=== PATIENT | female | born 1970 | race Hispanic/Latino ===

== ENCOUNTER 2018-11-19 17:36 | Emergency (ER) | payer SELFPAY ==
[2018-11-19 20:25] LABS: Urine Bacteria <20 /HPF (<20); Urine RBC <5 /HPF (NONE SEEN)
[2018-11-19 20:26] LABS: Urine Culture Reflex Order NOT NEEDED
[2018-11-19 20:28] LABS: Urine Blood NEGATIVE (NEG); Urine Glucose NEGATIVE (NEG); Urine Protein NEGATIVE (NEG); Urine Specific Gravity 1.005 (1.005-1.030); Urine pH 5.5 (5.0-7.0)
[2018-11-19 20:36] LABS: Absolute Lymphocytes (CBC) 2.7 K/uL (0.7-4.9); Absolute Monocytes 0.4 K/uL (0.1-1.3); Absolute Neutrophil 4.4 K/uL (1.8-8.0); Basophils % 1.2 % (0-1.3); Eosinophils % 1.5 % (0-4.4); Hematocrit 42.3 % (36.0-45.0); Lymphocytes % 34.7 % (15.3-44.8); MPV 9.6 fL (7.6-11.3); Monocytes % 5.3 % (3.3-12.3); RBC Red Blood Cell Count 4.59 M/uL (3.86-4.86)
[2018-11-19 20:42] LABS: ALT/SGPT 19 U/L (12-78); AST/SGOT 17 U/L (15-37); Albumin 4.1 g/dL (3.4-5.0); Alkaline Phosphatase 135 U/L (45-117); BUN Blood Urea Nitrogen 15 mg/dL (7-18); Bicarbonate 26 mmol/L (21-32); Bilirubin Direct < 0.1 mg/dL (0-0.2); Bilirubin Total 0.3 mg/dL (0.2-1.0); Glucose Level 88 mg/dL (74-106); Potassium 3.9 mmol/L (3.5-5.1); Protein, Total 8.4 g/dL (6.4-8.2); Sodium Level 142 mmol/L (136-145)
[2018-11-19] MEDS ORDERED: NA CHLORIDE 0.9% 500 ML ONE (20:44)
[2018-11-19] MEDS ORDERED: ASPIRIN 600 MG/SUPP PR ONE (20:44)
--- NOTE | 2018-11-19 21:07 | ER ---
Nurse's Notes [facility] Name: Marjorie Terry Age: 48 yrs Sex: Female : 1970 Arrival Date: 11/19/2018 Time: 17:39 Bed 8 Private MD: None, None Diagnosis: Frequency of micturition Presentation: 11/19 17:58 Presenting complaint: Patient states: Extreme thirst, can not get enough to drink, has sg noticed increased in urination frequency, reports nausea and abd pain. Transition of care: patient was not received from another setting of care. Onset of symptoms was November 19, 2018. Risk Assessment: Do you want to hurt yourself or someone else? Patient reports no desire to harm self or others. Initial Sepsis Screen: Does the patient meet any 2 criteria? No. Patient's initial sepsis screen is negative. Does the patient have a suspected source of infection? No. Patient's initial sepsis screen is negative. Care prior to arrival: None. 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 - Social history:: Smoking status: Patient/guardian denies using tobacco. - Ebola Screening: : Patient negative for fever greater than or equal to 101.5 degrees Fahrenheit, and additional compatible Ebola Virus Disease symptoms Patient denies exposure to infectious person Patient denies travel to an Ebola-affected area in the 21 days before illness onset No symptoms or risks identified at this time. Screenin:32 Abuse screen: Denies threats or abuse. Nutritional screening: No deficits noted. ea Tuberculosis screening: No symptoms or risk factors identified. Fall Risk None identified. Assessment: 19:33 General: Appears in no apparent distress. Behavior is calm, cooperative, appropriate ea for age. Pain: Denies pain. Neuro: Level of Consciousness is awake, alert, obeys commands, Oriented to person, place, time, situation. Cardiovascular: Patient's skin is warm and dry. Respiratory: Airway is patent Respiratory effort is even, unlabored, Respiratory pattern is regular, symmetrical. GI: Abdomen is non-distended, Reports nausea. : Reports urinary frequency. Derm: Skin is pink, warm \T\ dry. 20:27 Reassessment: Patient appears in no apparent distress at this time. Patient and/or tl2 family updated on plan of care and expected duration. Pain level reassessed. Patient is alert, oriented x 3, equal unlabored respirations, skin warm/dry/pink. pt appears concerned about dehydration, PA notified, new order see MAR. 21:41 Reassessment: Patient appears in no apparent distress at this time. Patient and/or tl2 family updated on plan of care and expected duration. Pain level reassessed. Patient is alert, oriented x 3, equal unlabored respirations, skin warm/dry/pink. pt verbalized understanding of discharge instructions, need for follow up for further testing. Vital Signs: 18:01 BP 176 / 85; Pulse 76; Resp 17; Temp 98.2; Pulse Ox 100% on R/A; sg 20:10 BP 149 / 95 RA Sitting (man/); Pulse 68; Resp 16; Pulse Ox 100% on R/A; oe ED Course: 17:39 Patient arrived in ED. mr 17:40 None, None is Private Physician. mr 17:57 Arm band placed on. sg 17:59 Triage completed. sg 18:57 Ken Smyth PA is PHCP. cp 18:57 Ken Lee MD is Attending Physician. cp 19:32 Denise Chen, RN is Primary Nurse. ea 19:32 Patient has correct armband on for positive identification. Bed in low position. Call ea light in reach. 20:20 Inserted saline lock: 20 gauge in left antecubital area, using aseptic technique. Blood tl2 collected. 21:41 No provider procedures requiring assistance completed. IV discontinued, intact, tl2 bleeding controlled, No redness/swelling at site. Pressure dressing applied. Administered Medications: 20:41 Drug: NS 0.9% 500 ml Route: IV; Rate: bolus; Site: left antecubital; tl2 21:43 Follow up: IV Status: Completed infusion; IV Intake: 500ml tl2 Point of Care Testing: Blood Glucose: 19:32 Blood Glucose: 81 mg/dL; ea Ranges: Intake: 21:43 IV: 500ml; Total: 500ml. tl2 Outcome: 21:05 Discharge ordered by . ivan 21:41 Discharged to home ambulatory. tl2 21:41 Condition: stable 21:41 Discharge instructions given to patient, Instructed on discharge instructions, follow up and referral plans. Demonstrated understanding of instructions, follow-up care. :43 Patient left the ED. tl2 Signatures: Andrea Kothari RN RN sg Rivera, Mary mr Page, Corey, Deepika Jones cp, RN RN tl2 Arvind Pena Elena, RN RN ea
--- NOTE | 2018-11-19 21:07 | EDPHYS ---
Physician Documentation [facility] Name: Marjorie Terry Age: 48 yrs Sex: Female : 1970 Arrival Date: 11/19/2018 Time: 17:39 Bed 8 Private MD: None, None ED Physician Ken Lee HPI: 11/19 19:15 This 48 yrs old Female presents to ER via Ambulatory with complaints of cp Urinary Problem, Nausea. 19:15 The patient presents with urinary symptoms, frequency. cp 19:15 Onset: The symptoms/episode began/occurred gradually. cp 19:15 Associated signs and symptoms: Pertinent positives: nausea, polydypsia , Pertinent cp negatives: diarrhea, dysuria, fever, vomiting. 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 - Social history:: Smoking status: Patient/guardian denies using tobacco. - Ebola Screening: : Patient negative for fever greater than or equal to 101.5 degrees Fahrenheit, and additional compatible Ebola Virus Disease symptoms Patient denies exposure to infectious person Patient denies travel to an Ebola-affected area in the 21 days before illness onset No symptoms or risks identified at this time. ROS: 19:20 Constitutional: Negative for body aches, chills, fever, poor PO intake. cp 19:20 Cardiovascular: Negative for chest pain, edema, palpitations. cp 19:20 ENT: Negative for drainage from ear(s), ear pain, sore throat, difficulty swallowing, cp difficulty handling secretions. 19:20 Respiratory: Negative for cough, shortness of breath, wheezing. 19:20 Abdomen/GI: Positive for nausea, Negative for abdominal pain, vomiting, diarrhea, constipation, black/tarry stool, rectal bleeding. 19:20 : Positive for urinary frequency. 19:20 Skin: Negative for cellulitis, rash. 19:20 Neuro: Negative for dizziness, headache, weakness. 19:20 Endocrine: Positive for polydipsia. 19:20 All other systems are negative. cp Exam: 19:25 Constitutional: The patient appears in no acute distress, alert, awake, cp non-diaphoretic, non-toxic, well developed, well nourished. 19:25 Head/Face: Normocephalic, atraumatic. Eyes: Pupils equal round and reactive to light, cp extra-ocular motions intact. Lids and lashes normal. Conjunctiva and sclera are non-icteric and not injected. Cornea within normal limits. Periorbital areas with no swelling, redness, or edema. ENT: Nares patent. No nasal discharge, no septal abnormalities noted. Tympanic membranes are normal and external auditory canals are clear. Oropharynx with no redness, swelling, or masses, exudates, or evidence of obstruction, uvula midline. Mucous membranes moist. Chest/axilla: Normal chest wall appearance and motion. Nontender with no deformity. No lesions are appreciated. Cardiovascular: Regular rate and rhythm with a normal S1 and S2. No gallops, murmurs, or rubs. Normal PMI, no JVD. No pulse deficits. Respiratory: Lungs have equal breath sounds bilaterally, clear to auscultation and percussion. No rales, rhonchi or wheezes noted. No increased work of breathing, no retractions or nasal flaring. Abdomen/GI: Soft, non-tender, with normal bowel sounds. No distension or tympany. No guarding or rebound. No evidence of tenderness throughout. Skin: Warm, dry with normal turgor. Normal color with no rashes, no lesions, and no evidence of cellulitis. Neuro: Awake and alert, GCS 15, oriented to person, place, time, and situation. Cranial nerves II-XII grossly intact. Motor strength 5/5 in all extremities. Sensory grossly intact. Cerebellar exam normal. Normal gait. Vital Signs: 18:01 BP 176 / 85; Pulse 76; Resp 17; Temp 98.2; Pulse Ox 100% on R/A; sg 20:10 BP 149 / 95 RA Sitting (man/); Pulse 68; Resp 16; Pulse Ox 100% on R/A; oe MDM: 18:57 Patient medically screened. cp 21:05 Data reviewed: vital signs, nurses notes, lab test result(s), and as a result, I will cp discharge patient. 21:05 Counseling: I had a detailed discussion with the patient and/or guardian regarding: the cp historical points, exam findings, and any diagnostic results supporting the discharge/admit diagnosis, lab results, the need for outpatient follow up, a family practitioner, to return to the emergency department if symptoms worsen or persist or if there are any questions or concerns that arise at home. ED course: VSS. Discussed results of labs. Recommend f/u with family physician for A1C. 11/19 19:12 Order name: Urine Microscopic Only; Complete Time: 20:56 cp 11/19 19:43 Order name: Urine Dipstick--Ancillary (enter results); Complete Time: 20:56 gm 11/19 19:43 Order name: Urine --Ancillary (enter results); Complete Time: 20:56 gm 11/19 19:54 Order name: CBC with Diff; Complete Time: 20:56 cp 11/19 20:56 Interpretation: Normal except: MCV 92.2. cp 11/19 19:54 Order name: BMP; Complete Time: 20:56 cp 11/19 20:56 Interpretation: Normal except: GFR 86. cp 11/19 19:54 Order name: LFT's; Complete Time: 20:56 cp 11/19 20:56 Interpretation: Normal except: ALK 135; TP 8.4; GLOB 4.3; A/G 1.0. cp 11/19 19:12 Order name: Urine Dipstick-Ancillary (obtain specimen); Complete Time: 19:37 cp 11/19 19:12 Order name: Urine Test (obtain specimen); Complete Time: 19:37 cp 11/19 19:12 Order name: Accucheck Blood Glucose; Complete Time: 19:34 cp Administered Medications: 20:41 Drug: NS 0.9% 500 ml Route: IV; Rate: bolus; Site: left antecubital; tl2 21:43 Follow up: IV Status: Completed infusion; IV Intake: 500ml tl2 Point of Care Testing: Blood Glucose: 19:32 Blood Glucose: 81 mg/dL; ea Ranges: Critical Glucose Levels:Adult <50 mg/dl or >400 mg/dl <40 mg/dl or >180 mg/dl Disposition: 22:00 Chart complete. cp Disposition: 11/19/18 21:05 Discharged to Home. Impression: Frequency of micturition. - Condition is Stable. - Discharge Instructions: How to Take Your Blood Pressure, [id number], Urinary Frequency, Adult, Form - Blood Pressure Record Sheet. - Medication Reconciliation Form, Thank You Letter, Antibiotic Education, Prescription Opioid Use form. - Follow up: Private Physician; When: 2 - 3 days; Reason: Recheck today's complaints. - Problem is new. - Symptoms have improved. Addendum: 11/24/2018 06:41 Co-signature as Attending Physician, Ken Lee MD I agree with the assessment and c madden plan of care. Signatures: Dispatcher [employer] EDAndrea Cooper, RN RN Ken Lopez MD MD cha Page, Corey, PA PA cp Deepika Mcdonough, RN RN tl2 Corrections: (The following items were deleted from the chart) 11/19 21:06 21:05 11/19/2018 21:05 Discharged to Home. Impression: Frequency of micturition; cp Nausea. Condition is Stable. Forms are Medication Reconciliation Form, Thank You Letter, Antibiotic Education, Prescription Opioid Use. Follow up: Private Physician; When: 2 - 3 days; Reason: Recheck today's complaints. Problem is new. Symptoms have improved. cp 21:43 21:06 11/19/2018 21:05 Discharged to Home. Impression: Frequency of micturition. tl2 Condition is Stable. Discharge Instructions: Urinary Frequency, Adult. Forms are Medication Reconciliation Form, Thank You Letter, Antibiotic Education, Prescription Opioid Use. Follow up: Private Physician; When: 2 - 3 days; Reason: Recheck today's complaints. Problem is new. Symptoms have improved. cp 11/20 21:34 11/19 19:20 All other systems are negative, cp cp
== END 2018-11-19 21:43 | disposition home or self-care (01) ==
LOC: ER 17:36
DX: R35.0 Frequency of micturition (principal)
CPT/HCPCS: 36415; 80048; 80076; 81003; 81015; 81025; 82962; 85025; 96360; 99284

== ENCOUNTER 2019-03-29 19:50 | Emergency (ER) | payer SELFPAY ==
--- OUTSIDE RECORDS SUMMARY | 2019-03-29 19:53 | XMS REPORT ---
:1970 [facility] [address] [place] [address] [place] [id number] Care Team Providers Name Role Phone Unavailable Unavailable Unavailable Problems This patient has no known problems. Allergies, Adverse Reactions, Alerts This patient has no known allergies or adverse reactions. Medications This patient has no known medications.
[2019-03-29 21:27] LABS: Urine Blood NEGATIVE (NEG); Urine Glucose NEGATIVE (NEG); Urine Protein NEGATIVE (NEG); Urine pH 5.5 (5.0-7.0)
[2019-03-29 21:29] LABS: Urine Bacteria <20 /HPF (<20); Urine Culture Reflex Order NOT NEEDED; Urine RBC NONE SEEN /HPF (NONE SEEN)
[2019-03-29] MEDS ORDERED: NA CHLORIDE 0.9% 1,000 ML ONE (21:31)
[2019-03-29 21:58] LABS: Absolute Lymphocytes (CBC) 2.6 K/uL (0.7-4.9); Absolute Monocytes 0.6 K/uL (0.1-1.3); Absolute Neutrophil 5.9 K/uL (1.8-8.0); Basophils % 0.2 % (0-1.3); Eosinophils % 3.5 % (0-4.4); Lymphocytes % 27.1 % (15.3-44.8); MPV 9.2 fL (7.6-11.3); Monocytes % 6.7 % (3.3-12.3); RBC Red Blood Cell Count 4.57 M/uL (3.86-4.86)
[2019-03-29 21:59] LABS: Bilirubin Direct 0.1 mg/dL (0-0.2); Bilirubin Total 0.3 mg/dL (0.2-1.0); Potassium 3.5 mmol/L (3.5-5.1); Protein, Total 8.3 g/dL (6.4-8.2)
--- NOTE | 2019-03-29 23:41 | EDPHYS ---
Physician Documentation [facility] Name: Marjorie Terry Age: 48 yrs Sex: Female : 1970 Arrival Date: 03/29/2019 Time: 19:56 Bed 13 Private MD: ED Physician Ken Lee HPI: 03/29 20:15 This 48 yrs old Female presents to ER via Ambulatory with complaints of Pain cp With Urination. 20:15 The patient presents with urinary symptoms, dysuria, frequency. cp 20:15 Onset: The symptoms/episode began/occurred 2 week(s) ago. Associated signs and cp symptoms: Pertinent positives: lower abdominal pain, low back pain, Pertinent negatives: constipation, diarrhea, fever, hematuria, vaginal bleeding, vaginal discharge. Severity of symptoms: in the emergency department the symptoms are unchanged, despite home interventions. Patient reports she has been drinking more water and cranberry juice w/o relief of symptoms. 21:10 Patient expresses to nurse concern for dehydration and c/o of sore throat. 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 - Social history:: Smoking status: Patient/guardian denies using tobacco. - Ebola Screening: : Patient denies travel to an Ebola-affected area in the 21 days before illness onset No symptoms or risks identified at this time. ROS: 20:20 Constitutional: Negative for body aches, chills, fever, poor PO intake. cp 20:20 Positive for urinary symptoms, Negative for vaginal bleeding, vaginal discharge. cp 20:20 Eyes: Negative for injury, pain, redness, and discharge. 20:20 Cardiovascular: Negative for chest pain, edema, palpitations. 20:20 Respiratory: Negative for cough, shortness of breath, wheezing. 20:20 Abdomen/GI: Positive for abdominal pain, Negative for vomiting, diarrhea, constipation, anorexia, black/tarry stool, rectal bleeding. 20:20 Back: Positive for pain at rest, of the low back area. 20:20 Skin: Negative for cellulitis, rash. 20:20 Neuro: Negative for altered mental status, headache, weakness. Exam: 20:30 Constitutional: The patient appears in no acute distress, alert, awake, non-toxic, well cp developed, well nourished. 20:30 Head/Face: Normocephalic, atraumatic. cp 20:30 Eyes: Periorbital structures: appear normal, Conjunctiva: normal, no exudate, no injection, Sclera: no appreciated abnormality, Lids and lashes: appear normal, bilaterally. 20:30 ENT: External ear(s): are unremarkable, Ear canal(s): are normal, clear, TM's: bulging, is not appreciated, bilaterally, dullness, bilaterally, erythema, is not appreciated, bilaterally, Nose: is normal, Mouth: Lips: moist, Oral mucosa: pink and intact, moist, Posterior pharynx: Airway: no evidence of obstruction, patent, Tonsils: are normal in appearance, swelling, is not appreciated, erythema, is not appreciated, exudate, is not appreciated. 20:30 Neck: ROM/movement: is normal, is supple, without pain, no range of motions limitations, no meningismus, no nuchal rigidity. 20:30 Chest/axilla: Inspection: normal. 20:30 Cardiovascular: Rate: normal, Rhythm: regular. 20:30 Respiratory: the patient does not display signs of respiratory distress, Respirations: normal, no use of accessory muscles, no retractions, no splinting, no tachypnea. 20:30 Abdomen/GI: Inspection: abdomen appears normal, Bowel sounds: active, all quadrants, Palpation: soft, in all quadrants, mild abdominal tenderness, in the right lower quadrant and left lower quadrant, rebound tenderness, is not appreciated, voluntary guarding, is not appreciated, involuntary guarding, is not appreciated. 20:30 Back: pain, that is mild, of the low back area and mid back area, ROM is normal. 20:30 Neuro: Orientation: to person, place \T\ time. Mentation: is normal, Motor: moves all fours, strength is normal, Sensation: is normal, Gait: is steady. Vital Signs: 20:05 BP 127 / 91; Pulse 72; Resp 16; Temp 97.5(TE); Pulse Ox 100% on R/A; Weight 60.33 kg; ed1 Height 4 ft. 9 in. (144.78 cm); Pain 0/10; 21:26 BP 130 / 89 Supine; Pulse 79; mt 21:26 BP 128 / 89 Sitting; Pulse 82; mt 21:26 BP 135 / 95 Standing; Pulse 93; mt 23:00 BP 124 / 82; Pulse 76; Resp 16; Pulse Ox 97% on R/A; jb4 23:30 BP 128 / 99; Pulse 64; Resp 16; Temp 98.6(O); Pulse Ox 100% on R/A; jb4 20:05 Body Mass Index 28.78 (60.33 kg, 144.78 cm) ed1 MDM: 20:11 Patient medically screened. cp 21:00 Differential diagnosis: kidney stone, urinary tract infection, dehydration, electrolyte cp abnormality. 23:40 Data reviewed: vital signs, nurses notes, lab test result(s), radiologic studies, CT cp scan. 23:40 Counseling: I had a detailed discussion with the patient and/or guardian regarding: the cp historical points, exam findings, and any diagnostic results supporting the discharge/admit diagnosis, lab results, radiology results, to return to the emergency department if symptoms worsen or persist or if there are any questions or concerns that arise at home. Response to treatment: the patient's symptoms have mildly improved after treatment, and as a result, I will discharge patient. ED course: VSS. Discussed results of labs and CT. Will discharge to home for continued monitoring and recommend urology f/u if symptoms continue. 03/29 21:00 Order name: Urine Microscopic Only; Complete Time: 22:22 cp 03/29 21:12 Order name: Basic Metabolic Panel; Complete Time: 22:22 cp 03/29 22:22 Interpretation: Normal except: GFR 81. cp 03/29 21:12 Order name: CBC with Diff; Complete Time: 22:22 cp 03/29 21:12 Order name: Creatinine for Radiology; Complete Time: 22:22 cp 03/29 21:12 Order name: Hepatic Function; Complete Time: 22:22 cp 03/29 23:41 Interpretation: Normal except: ALK 133; TP 8.3; GLOB 4.3; A/G 0.9. cp 03/29 21:12 Order name: Lipase; Complete Time: 22:22 cp 03/29 21:00 Order name: Urine Dipstick-Ancillary (obtain specimen); Complete Time: 21:39 cp 03/29 21:00 Order name: Urine Test (obtain specimen); Complete Time: 22:57 cp 03/29 21:23 Order name: Urine Dipstick--Ancillary (enter results) mw2 03/29 22:24 Order name: CT Stone Protocol cp 03/29 22:35 Order name: Urine --Ancillary (enter results) jb4 03/29 22:36 Order name: Strep; Complete Time: 23:41 jb4 03/29 23:14 Order name: Throat Culture EDID 03/29 21:01 Order name: Orthostatics; Complete Time: 21:25 cp 03/29 21:12 Order name: IV Saline Lock; Complete Time: 21:39 cp 03/29 21:12 Order name: Labs collected and sent; Complete Time: 21:39 cp Administered Medications: 21:39 Drug: NS 0.9% 1000 ml Route: IV; Rate: 1 bolus; Site: right antecubital; [facility] 22:40 Follow up: Response: No adverse reaction; IV Status: Completed infusion; IV Intake: jb4 1000ml Disposition: 03/29/19 23:40 Discharged to Home. Impression: Dysuria, Acute pharyngitis, Low back pain. - Condition is Stable. - Discharge Instructions: Back Pain, Adult, Dysuria, Pharyngitis, Back Exercises, Gilm-[id number]-Hdrc. - Prescriptions for Ibuprofen 800 mg Oral Tablet - take 1 tablet by ORAL route every 8 hours As needed take with food; 30 tablet. - Medication Reconciliation Form, Thank You Letter, Antibiotic Education, Prescription Opioid Use form. - Follow up: Lou Augustin MD; When: 2 - 3 days; Reason: Worsening of condition. - Problem is new. - Symptoms have improved. Addendum: 03/31/2019 06:40 Co-signature as Attending Physician, Ken Lee MD I agree with the assessment and c madden plan of care. Signatures: Dispatcher [employer] Ken Muñoz MD MD cha Riggs, Erika RN RN ed1 Ken Smyth PA PA Jaguar Douglass RN RN jb4 Corrections: (The following items were deleted from the chart) 03/29 23:41 23:40 03/29/2019 23:40 Discharged to Home. Impression: Dysuria. Condition is Stable. cp Forms are Medication Reconciliation Form, Thank You Letter, Antibiotic Education, Prescription Opioid Use. Follow up: Lou Augustin; When: 2 - 3 days; Reason: Worsening of condition. Problem is new. Symptoms have improved. cp 23:42 23:41 03/29/2019 23:40 Discharged to Home. Impression: Dysuria; Acute pharyngitis. cp Condition is Stable. Discharge Instructions: Dysuria, Pharyngitis. Forms are Medication Reconciliation Form, Thank You Letter, Antibiotic Education, Prescription Opioid Use. Follow up: Lou Augustin; When: 2 - 3 days; Reason: Worsening of condition. Problem is new. Symptoms have improved. cp 23:57 23:42 03/29/2019 23:40 Discharged to Home. Impression: Dysuria; Acute pharyngitis; Low jb4 back pain. Condition is Stable. Discharge Instructions: Dysuria, Pharyngitis. Prescriptions for Ibuprofen 800 mg Oral Tablet - take 1 tablet by ORAL route every 8 hours As needed take with food; 30 tablet. and Forms are Medication Reconciliation Form, Thank You Letter, Antibiotic Education, Prescription Opioid Use. Follow up: Lou Augustin; When: 2 - 3 days; Reason: Worsening of condition. Problem is new. Symptoms have improved. 03/30 21:50 03/29 20:20 ENT: Positive for sore throat, Negative for drainage from ear(s), ear pain, cp difficulty swallowing, difficulty handling secretions, cp 03/30 21:50 03/29 20:20 All other systems are negative, cp 03/30 22:03 03/29 23:00 Data reviewed: vital signs, nurses notes, lab test result(s), radiologic cp studies, CT scan, cp 03/30 22:03 03/29 23:00 Counseling: I had a detailed discussion with the patient and/or guardian cp regarding: the historical points, exam findings, and any diagnostic results supporting the discharge/admit diagnosis, lab results, radiology results, the need for outpatient follow up, a urologist, to return to the emergency department if symptoms worsen or persist or if there are any questions or concerns that arise at home, cp 03/30 22:03 03/29 23:00 Response to treatment: the patient's symptoms have mildly improved after cp treatment, and as a result, I will discharge patient, cp
--- NOTE | 2019-03-29 23:41 | ER ---
Nurse's Notes [facility] Name: Marjorie Terry Age: 48 yrs Sex: Female : 1970 Arrival Date: 03/29/2019 Time: 19:56 Bed 13 Private MD: Diagnosis: Dysuria;Acute pharyngitis;Low back pain Presentation: 03/29 20:03 Presenting complaint: Patient states: I think I have a bladder infection and now I am ed1 dehydrated. Transition of care: patient was not received from another setting of care. Onset of symptoms was March 15, 2019. Risk Assessment: Do you want to hurt yourself or someone else? Patient reports no desire to harm self or others. Initial Sepsis Screen: Does the patient meet any 2 criteria? No. Patient's initial sepsis screen is negative. Does the patient have a suspected source of infection? No. Patient's initial sepsis screen is negative. Care prior to arrival: None. 20:03 Method Of Arrival: Ambulatory ed1 20:03 Acuity: MANINDER 3 ed1 Triage Assessment: 20:05 General: Appears in no apparent distress. Behavior is calm, cooperative. Pain: Denies ed1 pain. : Reports burning with urination, urinary frequency. 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 - Social history:: Smoking status: Patient/guardian denies using tobacco. - Ebola Screening: : Patient denies travel to an Ebola-affected area in the 21 days before illness onset No symptoms or risks identified at this time. Screenin:40 Abuse screen: Denies threats or abuse. Nutritional screening: No deficits noted. jb4 Tuberculosis screening: No symptoms or risk factors identified. Fall Risk None identified. Assessment: 20:30 General: Appears in no apparent distress. comfortable, Behavior is calm, cooperative, jb4 appropriate for age. Pain: Complains of pain in mid back area Pain does not radiate. Pain currently is 5 out of 10 on a pain scale. Neuro: Level of Consciousness is awake, alert, obeys commands, Oriented to person, place, time, situation. Cardiovascular: Patient's skin is warm and dry. Respiratory: Airway is patent Respiratory effort is even, unlabored, Respiratory pattern is regular, symmetrical. GI: : Reports burning with urination, pain with urination, urgency, urinary frequency. EENT: No signs and/or symptoms were reported regarding the EENT system. Derm: Skin is intact, Skin is pink, warm \T\ dry. Musculoskeletal: Circulation, motion, and sensation intact. 21:30 Reassessment: Patient appears in no apparent distress at this time. Patient and/or jb4 family updated on plan of care and expected duration. Pain level reassessed. Patient is alert, oriented x 3, equal unlabored respirations, skin warm/dry/pink. 22:30 Reassessment: Patient appears in no apparent distress at this time. Patient and/or jb4 family updated on plan of care and expected duration. Pain level reassessed. Patient is alert, oriented x 3, equal unlabored respirations, skin warm/dry/pink. 23:53 Reassessment: Patient appears in no apparent distress at this time. Patient and/or jb4 family updated on plan of care and expected duration. Pain level reassessed. Patient is alert, oriented x 3, equal unlabored respirations, skin warm/dry/pink. Pt discharged home ambulatory with steady gait. no s/s of distress or pain noted. IV d/c'ed intact with bleeding controlled. Verbalized understanding of d/c and follow up instructions. Vital Signs: 20:05 BP 127 / 91; Pulse 72; Resp 16; Temp 97.5(TE); Pulse Ox 100% on R/A; Weight 60.33 kg; ed1 Height 4 ft. 9 in. (144.78 cm); Pain 0/10; 21:26 BP 130 / 89 Supine; Pulse 79; mt 21:26 BP 128 / 89 Sitting; Pulse 82; mt 21:26 BP 135 / 95 Standing; Pulse 93; mt 23:00 BP 124 / 82; Pulse 76; Resp 16; Pulse Ox 97% on R/A; jb4 23:30 BP 128 / 99; Pulse 64; Resp 16; Temp 98.6(O); Pulse Ox 100% on R/A; jb4 20:05 Body Mass Index 28.78 (60.33 kg, 144.78 cm) ed1 ED Course: 19:56 Patient arrived in ED. am2 20:04 Triage completed. ed1 20:05 Arm band placed on left wrist. ed1 20:11 Ken Smyth PA is PHCP. cp 20:11 Ken Lee MD is Attending Physician. cp 20:25 Jaguar De Santiago, RN is Primary Nurse. jb4 20:40 Patient has correct armband on for positive identification. Placed in gown. Bed in low jb4 position. Call light in reach. Side rails up X 1. Pulse ox on. NIBP on. 21:30 Initial lab(s) drawn, by me, by EMS personnel. Inserted saline lock: 22 gauge in right jb4 antecubital area, using aseptic technique. Blood collected. 23:06 CT Stone Protocol In Process Unspecified. EDMS 23:30 No provider procedures requiring assistance completed. IV discontinued, intact, jb4 bleeding controlled, No redness/swelling at site. 23:40 Lou Augustin MD is Referral Physician. cp Administered Medications: 21:39 Drug: NS 0.9% 1000 ml Route: IV; Rate: 1 bolus; Site: right antecubital; jb4 22:40 Follow up: Response: No adverse reaction; IV Status: Completed infusion; IV Intake: jb4 1000ml Intake: 22:40 IV: 1000ml; Total: 1000ml. jb4 Outcome: 23:40 Discharge ordered by . cp 23:56 Discharged to home ambulatory. jb4 23:56 Condition: stable 23:56 Discharge instructions given to patient, Instructed on discharge instructions, follow up and referral plans. medication usage, Demonstrated understanding of instructions, follow-up care, medications, Prescriptions given X 1. 23:57 Patient left the ED. jb4 Signatures: Dispatcher [employer] EDMS Yina Hernandez RN RN ed1 Ken Smyth PA PA cp Jaguar De Santiago RN RN jb4 Ira Barrett [place]
--- NOTE | 2019-03-30 10:04 | RAD REPORT ---
EXAM DESCRIPTION: Stone Protocol CLINICAL HISTORY: Lower abdomen pain, dysuria COMPARISON: None. TECHNIQUE: CT ABDOMEN PELVIS WITHOUT IV CONTRAST on 03/29/2019 10:24 PM CDT This exam was performed according to our departmental dose-optimization program, which includes autom ated exposure control, adjustment of the mA and/or kV according to patient size and/or use of iterati ve reconstruction technique. FINDINGS: Lower lungs are clear. Abdomen: The liver is normal in appearance. There is no biliary dilatation. Gallbladder is not clearl y seen. The pancreas and spleen are normal in appearance. The adrenal glands and kidneys are unremark able. Abdominal aorta is normal in course and caliber without aneurysm. There is no free air. There is no r etroperitoneal adenopathy. Pelvis: There is no bowel obstruction. Urinary bladder is unremarkable. There is no free fluid. Uteru s is normal in size. Appendix is normal. There are bilateral tubal occlusion devices. Skeleton: There are no acute osseous findings. No suspicious bony lesions. IMPRESSION: No acute inflammatory process. No renal or ureteral calculi. Electronically signed by: Edilberto Hansen MD 03/29/2019 11:22 PM CDT Due to temporary technical issues with the PACS/Fluency reporting system, reports are being signed by the in house radiologist as a courtesy to ensure prompt reporting. The interpreting radiologist is f ully responsible for the content of the report.
== END 2019-03-29 23:57 | disposition home or self-care (01) ==
LOC: ER 19:50
DX: J02.9 Acute pharyngitis, unspecified (principal); M54.5 Low back pain
CPT/HCPCS: 36415; 74176; 76377; 80048; 80076; 81003; 81015; 81025; 83690; 85025; 87070; 87081; 96360; 99284; J7030

== ENCOUNTER 2025-06-25 20:02 | Emergency (ER) | payer SELFPAY ==
--- OUTSIDE RECORDS SUMMARY | 2025-06-25 20:04 | XMS REPORT | Continuity of Care Document ---
Author Name Unknown Address [address] [place] [address] Organization [facility] [place] Address [address] [place] [address] Care Team Providers Care Service Trainer Name Role Phone Pcp, Patient Does Not Have A Primary Care Physic mariangel Doctor Unassigned, [place] Attending Clinician U navailable Lisa Sears Attending Clinician LISA DA SILVA Attending Clinician Unavailab EDY Paulson Attending Clinician Unavailable Edy Flynn Attending Clinician DARIEN AL Attending Clinician Unavail able EDY SHELL Admitting Clinician Unavailable Payers Payer Name Policy Type Policy Number Effective Date Expirati on Date Source Problems Condition Name Condition Details Condition Category Status Onset Date Resolution Date Last Treatment Date Treating Clinician Comments Source History of bilateral tubal ligation History of bilateral tubal ligation Disease Active 2019-11 00:00: 00 [facility] Encounter for other general counseling or advice on contracept ion Encounter for other general counseling or advice on contracept ion Disease Active 12-09 00:00: 00 [facility] Menopausal state Menopausal state Disease Active 12-09 00:00: 00 [facility] Obesity, unspecifie d classifica tion, unspecifie d obesity type, unspecifie d whether serious comorbidit y present Obesity, unspecifie d classifica tion, unspecifie d obesity type, unspecifie d whether serious comorbidit y present Disease Active 12-09 00:00: 00 [facility] BMI 27.0-27.9, adult BMI 27.0-27.9, adult Disease Active 12-09 00:00: 00 [facility] BMI 27.0-27.9, adult BMI 27.0-27.9, adult Disease Active 12-09 00:00: 00 [facility] General counseling and advice for contracept celso management General counseling and advice for contracept celso management Disease Active 05-07 00:00: 00 Overview: Formattin g of this note might be different from the original. ICD10 Diagnosis Term [facility] Manager Utility [facility] Allergies, Adverse Reactions, Alerts Allergy Name Allergy Type Status Severity Reaction(s) Onset Date Inactive Date Treating Clinician Comments Source NO KNOWN ALLERGIE S Drug Class Active [facility] Social History Social Habit Start Date Stop Date Quantity Comments Source Exposure to SARS-CoV-2 (event) 2022-03-09 00:00:00 2022-03-19 14:50:00 Not sure [facility] Alcohol intake 2021-12-29 00:00:00 2021-12-29 00:00:00 Current non-drinker of alcohol (finding) [facility] Tobacco use and exposure 2013-05-07 00:00:00 2013-05-07 00:00:00 Smokeless tobacco non-user [facility] Sex Assigned At 1970 00:00:00 1970 00:00:00 [facility] Smoking Status Start Date Stop Date Source Never smoked tobacco [facility] Medications Ordered Medication Name Filled Medication Name Start Date Stop Date Current Medication? Ordering Clinician Indication Dosage Frequency Signature (SIG) Comments Components Source No known medications 12-29 12:08: 00 No [facility] Vital Signs Vital Name Observation Time Observation Value Comments S prasad Systolic blood pressure 2022-03-19 22:51:00 139 mm[facility]Hg[facility] Diastolic blood pressure 2022-03-19 22:51:00 82 mm[Hg] [facility] Heart rate 2022-03-19 22:51:00 77 /min [facility] Respiratory rate 2022-03-19 22:51:00 18 /min [facility] Oxygen saturation in Arterial blood by Pulse oximetry 2022-03-19 22:51:00 99 /min [facility] Body temperature 2022-03-19 20:04:00 37 Analia [facility] Body height 2022-03-19 20:04:00 144.8 cm [facility] Body weight 2022-03-19 20:04:00 58.65 kg [facility] BMI 2022-03-19 20:04:00 27.98 kg/m2 [facility] Systolic blood pressure 2021-12-29 17:41:00 128 mm[Hg[facility] Diastolic blood pressure 2021-12-29 17:41:00 82 mm[Hg[facility] Heart rate 2021-12-29 17:41:00 68 /min [facility] Body temperature 2021-12-29 17:41:00 36.17 Analia [facility] Respiratory rate 2021-12-29 17:41:00 16 /min [facility] Body height 2021-12-29 17:41:00 144.8 cm [facility] Body weight 2021-12-29 17:41:00 57.153 kg [facility] BMI 2021-12-29 17:41:00 27.27 kg/m2 [facility] Procedures Procedure Date / Time Performed Performing Clinician Source AUTHORIZATION FOR RELEASE OF PHI 2023-03-31 05:01:00 Doctor Unassigned, [place] [facility] AUTHORIZATION FOR RELEASE OF PHI 2022-08-06 05:01:00 Doctor Unassigned, [place] [facility] XR ANKLE 3+ VW RIGHT 2022-03-19 22:12:00 Edy Shell [facility] XR CHEST 1 VW 2022-03-19 21:54:56 [facility] XR SPINE THORACIC 2 VW 2022-03-19 21:54:56 Laila Shell [facility] XR HIPS 3 VW RIGHT 2022-03-19 21:54:56 Edy Shell [facility] XR KNEE <3 VW RIGHT 2022-03-19 21:54:56 Edy Shell [facility] XR WRIST 3+ VW RIGHT 2022-03-19 21:54:56 Edy Shell [facility] CONSENT/REFUSAL FOR DIAGNOSIS AND TREATMENT 2022-03-19 19:53:05 Doctor Unassigned, [place] [facility] NOTICE OF PRIVACY PRACTICES 2022-03-19 19:50:25 Doctor Unassigned, [place] [facility] Encounters Start Date/Time End Date/Time Encounter Type Admission Type Attending [facility] Facility Care Department Encounter ID Source 2023-10-21 16:06:09 2023-10-21 16:06:09 Outpatient [facility] [id number] 2023-03-31 00:00:00 2023-03-31 00:00:00 Orders Only Doctor Unassigned, [place] [facility] 1.2.840.114 350.1.13.10 4.2.7.2.686 [id number] [facility] 2022-08-06 00:00:00 2022-08-06 00:00:00 Orders Only Doctor Unassigned, [place] [facility] 1.2.840.114 350.1.13.10 4.2.7.2.686 [id number] [facility] 2022-03-20 06:39:04 2022-03-20 23:59:00 Hospital Encounter Lisa Da Silva [facility] [id number] 350.1.13.10 [id number] [id number] [facility] 2022-03-20 00:00:00 2022-03-20 23:59:00 Outpatient LISA VAIL [facility] [id number] [facility] 2022-03-20 00:00:00 2022-03-20 00:00:00 Outpatient DALTON VAILA [facility] [id number] [facility] 2022-03-19 15:06:00 2022-03-19 17:57:00 Emergency X EDY SHELL [facility] ERT [id number] [facility] 2022-03-19 15:06:00 2022-03-19 17:57:[address] [facility] 1.84.114 350.1.13.10 4.2.7.2.686 [id number] [facility] 2022-03-19 00:00:00 2022-03-19 00:00:00 Orders Only Doctor Unassigned, [place] [facility] 1..840.114 350.1.13.10 4.2.7.2.686 [id number] [facility] 2021-12-29 11:45:00 2021-12-29 12:05:16 Office Visit Lisa Da Silva [facility] 1.840.114 350.1.13.10 4.2.7.2.686 [id number] [facility] 2021-12-29 11:45:00 2021-12-29 12:05:16 Outpatient LISA VAIL [facility] [id number] [facility] 2021-12-29 11:00:00 2021-12-29 12:04:47 Office Visit Lisa Da Silva [facility] 1.840.114 350.1.13.10 4.2.7.2.686 [id number] [facility] 2021-12-29 11:00:00 2021-12-29 12:04:47 Outpatient Shaheen LISA DA SILVA [facility] [id number] [facility] 2021-12-29 11:45:00 2021-12-29 11:45:00 Outpatient Shaheen DA SILVA, LISA [facility] [id number] [facility] 2021-12-29 11:45:00 2021-12-29 11:45:00 Outpatient Shaheen DA SILVA LISA [facility] [id number] [facility] 2021-12-29 11:00:00 2021-12-29 11:00:00 Outpatient Shaheen DA SILVA, LISA [facility] [id number] [facility] 2021-12-29 00:00:00 2021-12-29 00:00:00 Orders Only Doctor Unassigned, [place] [facility] 1.840.114 350.1.13.10 4.2.7.2.686 [id number] [facility] 2020-12-19 06:36:55 2020-12-19 23:59:00 Hospital Encounter Lisa Da Silva [facility] 1.840.114 350.1.13.10 4.2.7.2.686 [id number] [facility] 2020-12-19 00:00:00 2020-12-19 00:00:00 Outpatient [place] VAILNATHALIECarlos [facility] [id number] [facility] 2020-10-17 15:45:57 2020-10-17 16:39:42 Office Visit Da SilvaLisa [facility] 1.840.114 350.1.13.10 4.2.7.2.686 [id number] [facility] 2020-10-17 16:15:04 2020-10-17 16:38:36 Office Visit Da SilvaLisa [facility] 1.2.840.114 350.1.13.10 4.2.7.2.686 [id number] [facility] 2020-10-17 14:00:00 2020-10-17 14:00:00 Outpatient R MIKAELAFINESSEDARIEN [facility] [id number] [facility] 2020-10-17 08:45:00 2020-10-17 08:45:00 Outpatient R DA SILVA WASHINGTONKHUSHBOO [facility] [id number] [facility] 2020-10-17 00:00:00 2020-10-17 00:00:00 Orders Only Doctor Unassigned, [place] [facility] 1.2.840.114 350.1.13.10 4.2.7.2.686 [id number] [facility] 2020-10-10 13:45:00 2020-10-10 13:45:00 Outpatient R [facility] [id number] [facility]
--- NOTE | 2025-06-25 20:23 | EDPHYS ---
Physician Documentation [facility] Name: Marjorie Terry Age: 54 yrs Sex: Female : 1970 Arrival Date: 06/25/2025 Time: 20:02 Bed 15 Private MD: ED Physician Ezio Melendez HPI: 06/25 20:23 This 54 yrs old Female presents to ER via Ambulatory with complaints of Flu ms3 Symptoms, Fever, Doesn't Feel Right. 20:23 54-year-old female with past medical history of hypertension, tachycardia [place] [facility] [place] for flulike symptoms. Patient states on Friday she developed a scratchy throat and Friday she developed body aches, congestion, headache. Patient has taken Mucinex with waxing and waning of her symptoms. Patient states her discomfort today is a 6/10.. Historical: - Allergies: 20:16 No Known Allergies; dd2 - PMHx: 20:16 Hypertension; Tachycardia; dd2 - PSHx: 20:16 CARDIAC ABLATION (Tachycardia); dd2 - Immunization history:: Adult Immunizations up to date. - Infectious Disease History:: Denies. - Social history:: Smoking status: Patient denies any tobacco usage or history of. ROS: 20:23 Constitutional: Negative for fever, and chills. ms3 20:23 Abdomen/GI: Negative for abdominal pain, nausea, vomiting, diarrhea, and constipation, MS/Extremity: Negative for injury and deformity, Skin: Negative for injury, rash, and discoloration, 20:23 ENT: Positive for sore throat, Exam: 20:23 Constitutional: This is a well developed, well nourished patient who is awake, alert, ms3 and in no acute distress. Cardiovascular: Regular rate and rhythm with a normal S1 and S2. No gallops, murmurs, or rubs. Normal PMI, no JVD. No pulse deficits. Respiratory: Lungs have equal breath sounds bilaterally, clear to auscultation and percussion. No rales, rhonchi or wheezes noted. No increased work of breathing, no retractions or nasal flaring. Abdomen/GI: Soft, non-tender, with normal bowel sounds. No distension or tympany. No guarding or rebound. No evidence of tenderness throughout. Skin: Warm, dry with normal turgor. Normal color with no rashes, no lesions, and no evidence of cellulitis. 20:23 ENT: External ear(s): are unremarkable, Nose: nasal drainage, that is minimal, and is seen coming from both nares, that is clear, Vital Signs: 20:12 BP 169 / 97; Pulse 64; Resp 17; Temp 98.2; Pulse Ox 100% ; Weight 57.15 kg; Height 4 dd2 ft. 9 in. ; Pain 6/10; 20:12 Body Mass Index 27.27 (57.15 kg, 144.78 cm) dd2 20:12 Pain Scale: Adult dd2 MDM: 20:17 Medical Screening Exam initiated ms3 20:23 Differential diagnosis: viral Infection, URI, Flu versus COVID. ms3 20:23 Data reviewed: vital signs, nurses notes, and as a result, I will discharge patient. I ms3 considered the following discharge prescriptions or medication management in the emergency department Medications were administered in the Emergency Department. See MAR. Counseling: I had a detailed discussion with the patient and/or guardian regarding the historical points, exam findings, and any diagnostic results supporting the discharge/admit diagnosis, the need for outpatient follow up, to return to the emergency department if symptoms worsen or persist or if there are any questions or concerns that arise at home. ED course: Patient does not wish to be tested for flu or COVID as she states those tests are too painful. Patient requesting steroid injection. Dexamethasone 10 mg IM ordered. Patient to follow-up with primary care physician in 2 to 3 days. Patient understands and agrees with plan. All questions were answered. Return precautions discussed include worsening symptoms, or any other concerns.. Administered Medications: 20:30 Drug: Dexamethasone IM 10 mg IM once Route: IM; Site: right ventrogluteal; hm5 20:36 Follow up: Response: No adverse reaction hm5 Disposition Summary: 06/25/25 20:23 Discharge Ordered Notes: Location: Home ms3 Condition: Stable ms3 Diagnosis - Acute upper respiratory infection, unspecified ms3 Followup: ms3 - With: Eddi Knowles DO - When: 2 - 3 days - Reason: Recheck today's complaints Discharge Instructions: - Discharge Summary Sheet ms3 - Upper Respiratory Infection, Adult ms3 Forms: - Medication Reconciliation Form ms3 - Antibiotic Education ms3 - Prescription Opioid Use ms3 - Patient Portal Instructions ms3 - Leadership Thank You Letter ms3 Prescriptions: - Claritin 10 mg Oral Tablet - take 1 tablet ORAL route once daily As needed; 30 tablet; Refills: 0, Product ms3 Selection Permitted Signatures: Ezio Melendez DO DO ms3 ANAMARIA LILLY RN RN dd2 Delia Dixon RN RN hm5
--- NOTE | 2025-06-25 20:23 | ER ---
Nurse's Notes [facility] Name: Marjorie Terry Age: 54 yrs Sex: Female : 1970 Arrival Date: 06/25/2025 Time: 20:02 Bed 15 Private MD: Diagnosis: Acute upper respiratory infection, unspecified Presentation: 06/25 20:12 Chief complaint: Patient states: SHE BEGAN HAVING SCRATCHY THROAT ON FRIDAY. FRIDAY dd2 BEGAN HAVING BODY ACHES, CONGESTION, PRESSURE HEADACHE, FEELING TIRED AND SNEEZING. REPORTS TAKING MUCINEX FOR SYMPTOMS WITH LITTLE RELIEF. Coronavirus screen: chills, congestion, fatigue, headache, muscle pain, runny nose, sore throat. Ebola Screen: No symptoms or risks identified at this time. Initial Sepsis Screen: Does the patient meet any 2 criteria? No. Patient's initial sepsis screen is negative. Does the patient have a suspected source of infection? No. Patient's initial sepsis screen is negative. Risk Assessment: Do you want to hurt yourself or someone else? Patient reports no desire to harm self or others. Onset of symptoms was June 19, 2025. 20:12 Method Of Arrival: Ambulatory dd2 20:12 Acuity: MANINDER 3 dd2 Triage Assessment: 20:16 General: Appears in no apparent distress. uncomfortable, Behavior is calm, cooperative, dd2 appropriate for age. Pain: Complains of pain in HEAD, GENNERALIZED MUSCLES. EENT: Reports nasal congestion pain when swallowing. Neuro: Reports headache. Historical: - Allergies: 20:16 No Known Allergies; dd2 - PMHx: 20:16 Hypertension; Tachycardia; dd2 - PSHx: 20:16 CARDIAC ABLATION (Tachycardia); dd2 - Immunization history:: Adult Immunizations up to date. - Infectious Disease History:: Denies. - Social history:: Smoking status: Patient denies any tobacco usage or history of. Screenin:19 [facility] ED Fall Risk Assessment (Adult) History of falling in the last 3 months, hm5 including since admission No falls in past 3 months (0 pts) Confusion or Disorientation No (0 pts) Intoxicated or Sedated No (0 pts) Impaired Gait No (0 pts) Mobility Assist Device Used No (0 pt) Altered Elimination No (0 pt). [facility] ED Fall Risk Assessment (Adult) Score/Fall Risk Level 0 - 2 = Low Risk. Abuse screen: Denies threats or abuse. Denies injuries from another. Nutritional screening: No deficits noted. Tuberculosis screening: No symptoms or risk factors identified. Assessment: 20:21 General: Appears uncomfortable, well groomed, well developed, well nourished, Behavior 5 is calm, cooperative, Reports chills for 12-24 hours, fever for 12-24 hours, feeling ill for 12-24 hours, fatigue for 12-24 hours. Pain: Denies pain. Neuro: No deficits noted. Cardiovascular: No deficits noted. Respiratory: No deficits noted. Respiratory: Reports cough that is since yesterday. GI: No deficits noted. No signs and/or symptoms were reported involving the gastrointestinal system. : No deficits noted. No signs and/or symptoms were reported regarding the genitourinary system. EENT: Reports pain in throat. Derm: No deficits noted. No signs and/or symptoms reported regarding the dermatologic system. Musculoskeletal: No deficits noted. No signs and/or symptoms reported regarding the musculoskeletal system. Vital Signs: 20:12 BP 169 / 97; Pulse 64; Resp 17; Temp 98.2; Pulse Ox 100% ; Weight 57.15 kg; Height 4 dd2 ft. 9 in. ; Pain 6/10; 20:12 Body Mass Index 27.27 (57.15 kg, 144.78 cm) dd2 20:12 Pain Scale: Adult dd2 ED Course: 20:03 Patient arrived in ED. [email or web address] 20:07 Ezio Melendez DO is Attending Physician. ms3 20:15 Triage completed. dd2 20:16 Arm band placed on right wrist. dd2 20:18 Delia Dixon, RN is Primary Nurse. hm5 20:19 Patient has correct armband on for positive identification. Bed in low position. Call [facility] light in reach. Side rails up X 1. Provided Education on: plan of care. 20:19 No provider procedures requiring assistance completed. hm5 20:23 Eddi Knowles DO is Referral Physician. ms3 20:37 Patient did not have IV access during this emergency room visit. 5 Administered Medications: 20:30 Drug: Dexamethasone IM 10 mg IM once Route: IM; Site: right ventrogluteal; [facility] 20:36 Follow up: Response: No adverse reaction [facility] Medication: 20:19 VIS not applicable for this client. [facility] Outcome: 20:23 Discharge ordered by . ms3 20:36 Discharged to home ambulatory, [facility] 20:36 Condition: stable 20:36 Discharge instructions given to patient, Instructed on discharge instructions, follow up and referral plans. medication usage, Demonstrated understanding of instructions, follow-up care, medications, Prescriptions given X 1, 20:37 Patient left the ED. [facility] Signatures: Ezio Melendez DO DO ms3 Lilo [id number] ANAMARIA LILLY, RN RN dd2 Delia Dixon, RN RN 5
[2025-06-26 03:45] VITALS: BP 169/97; TEMP 98.2; O2SAT 100
== END 2025-06-25 20:37 | disposition home or self-care (01) ==
LOC: ER 20:02
DX: J06.9 Acute upper respiratory infection, unspecified (principal)
CPT/HCPCS: 96372; 99284; J1100